=== PATIENT | male | born 1940 | race Caucasian/White ===

== ENCOUNTER 2019-11-20 06:01 | Emergency (ER) | payer MEDICARE ==
--- NOTE | 2019-11-20 06:22 | ERPHSYRPT ---
- History of Present Illness Time Seen by Provider: 11/20/19 06:15 Source: patient Exam Limitations: no limitations Physician History: 79 y/o white male exposed to bleach a couple of days ago. now coughing and mild soa. in addition, he said he has a rash left forearm. pt did use an old albuterol inhaler a couple of times. 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 pt denies cp. pt denies n/v/d. he denies abd pain. Timing/Duration: day(s) (2) Activities at Onset: none Severity of Dyspnea-Max: mild Severity of Dyspnea-Current: mild Possible Cause: no prior episodes Associated Symptoms: intermittent, cough, No chest pain/discomfort, No insomnia , No loss of appetite, No wheezing, No hemoptysis Allergies/Adverse Reactions: No Known Drug Allergies Allergy (Unverified 11/20/19 06:25) Home Medications: Apixaban [Eliquis] 5 mg PO DAILY 11/20/19 [History] lisinopriL [Lisinopril] 40 mg PO DAILY 11/20/19 [History] - Review of Systems Constitutional: No Symptoms Eyes: No Symptoms Ears, Nose, & Throat: No Symptoms Respiratory: Cough, Dyspnea Cardiac: No Symptoms, No Chest Pain, No Palpitations Abdominal/Gastrointestinal: No Symptoms Genitourinary Symptoms: No Symptoms Musculoskeletal: No Symptoms Skin: No Symptoms Neurological: No Symptoms Psychological: No Symptoms Endocrine: No Symptoms Hematologic/Lymphatic: No Symptoms Immunological/Allergic: No Symptoms All Other Systems: Reviewed and Negative - Past Medical History Pertinent Past Medical History: Yes Neurological History: No Pertinent History ENT History: No Pertinent History Endocrine Medical History: No Pertinent History Musculoskeletal History: No Pertinent History GI Medical History: No Pertinent History History: No Pertinent History Psycho-Social History: No Pertinent History Male Reproductive Disorders: No Pertinent History - Past Surgical History Neuro Surgical History: No Pertinent History Respiratory: No Pertinent History Gastrointestinal: No Pertinent History Genitourinary: No Pertinent History Musculoskeletal: No Pertinent History Male Surgical History: No Pertinent History - Nursing Vital Signs Nursing Vital Signs: Initial Vital Signs Temperature 98.8 F 11/20/19 06:09 Pulse Rate 79 11/20/19 06:09 Respiratory Rate 23 11/20/19 06:09 Blood Pressure 181/88 11/20/19 06:09 O2 Sat by Pulse Oximetry 93 L 11/20/19 06:09 Pain Scale Pain Intensity 0 - Physical Exam General Appearance: mild distress, alert, anxiety Eye Exam: PERRL/EOMI, eyes nml inspection Ears, Nose, Throat Exam: hearing grossly normal Neck Exam: normal inspection, non-tender, supple, full range of motion Respiratory Exam: normal breath sounds, respiratory distress, airway intact, rhonchi (mild), wheezing (right side ant and bilat post), No chest tenderness Cardiovascular/Chest Exam: normal heart sounds, regular rate/rhythm, murmur, normal peripheral pulses Abdominal/Gastrointestinal Exam: soft, normal bowel sounds Rectal Exam: not done Extremity Exam: non-tender, normal range of motion, normal inspection Neurologic Exam: alert, oriented x 3, cooperative, cigar brander II-XII nml as tested Skin Exam: normal color, warm, dry, rash (two flat pink well circumscribed patches left forearm) Lymphatic Exam: No adenopathy SpO2 Interpretation: normal O2 Delivery: Room Air - Course Nursing assessment & vital signs reviewed: Yes Ordered Tests: Active Orders 24 hr Category Date Time Status Produce Sorter STAT Care 11/20/19 06:23 Active IV Insertion STAT Care 11/20/19 06:22 Active Pulse Oximetry (ED) STAT Care 11/20/19 06:22 Active CHEST 1 VIEW (PORTABLE) Stat Exams 11/20/19 06:22 Taken CBC W DIFF Stat Lab 11/20/19 06:31 Completed CMP Stat Lab 11/20/19 06:31 Results Lactic Acid Stat Lab 11/20/19 06:22 Completed NT PRO BNP Stat Lab 11/20/19 06:31 Results PROTIME WITH INR Stat Lab 11/20/19 06:31 Completed Peak Expiratory Flow Rate ONCE RT 11/20/19 06:34 Active Respiratory Therapy Assessment DAILY RT 11/20/19 06:33 Active Medication Summary Discontinued Medications Generic Name Dose Route Start Last Admin Trade Name Freq PRN Reason Stop Dose Admin Albuterol Sulfate 2.5 mg 11/20/19 06:28 11/20/19 06:30 Proventil 2.5 Mg/3 Ml Neb IH 11/20/19 06:29 2.5 mg STAT ONE Administration Albuterol Sulfate Confirm 11/20/19 06:29 Proventil 2.5 Mg/3 Ml Neb Administered 11/20/19 06:30 Dose 2.5 mg IH .STK-MED ONE Ceftriaxone Sodium/Dextrose 1 g in 50 mls @ 100 mls/hr 11/20/19 07:01 07:15 Rocephin 1 Gm-D5w 50 Ml Bag IV 11/20/19 07:30 100 mls/hr STAT STA 100 mls/hr Administration Ceftriaxone Sodium/Dextrose Confirm 11/20/19 07:14 Rocephin 1 Gm-D5w 50 Ml Bag Administered 11/20/19 07:15 Dose 1 g in 50 mls @ ud IV .STK-MED ONE Methylprednisolone Sodium Succinate 125 mg 11/20/19 06:30 11/20/19 06:40 Solu-Medrol 125 Mg IV 11/20/19 06:31 125 mg STAT ONE Administration Methylprednisolone Sodium Succinate Confirm 11/20/19 06:40 Solu-Medrol 125 Mg Administered 11/20/19 06:41 Dose 125 mg .ROUTE .STK-MED ONE Lab/Rad Data: Laboratory Result Diagrams 11/20/19 06:31 11/20/19 06:31 Laboratory Results 11/20/19 11/20/19 11/20/19 Range/Units 06:31 06:31 06:31 WBC (4.0-10.5) K/mm3 RBC (4.1-5.6) M/mm3 Hgb (12.5-18.0) gm/dl Hct (42-50) % MCV (78-100) fl MCH (26-32) pg MCHC (32-36) g/dl RDW (11.5-14.0) % Plt Count (150-450) K/mm3 MPV (7.5-11.0) fl Gran % (36.0-66.0) % Eos # (Auto) (0-0.5) Absolute Lymphs (auto) (1.0-4.6) Absolute Monos (auto) (0.0-1.3) Lymphocytes % (24.0-44.0) % Monocytes % (0.0-12.0) % Eosinophils % (0.00-5.0) % Basophils % (0.0-0.4) % Absolute Granulocytes (1.4-6.9) Basophils # (0-0.4) PT 16.3 H (8.83-12.87) SECONDS INR 1.43 (0.8-3.0) Sodium 138 (137-145) mmol/L Potassium 4.4 (3.5-5.1) mmol/L Chloride 108 H (98-107) mmol/L Carbon Dioxide 21 L (22-30) mmol/L Anion Gap 13.7 (5-15) MEQ/L BUN 19 (9-20) mg/dL Creatinine 1.43 H (0.66-1.25) mg/dL Estimated GFR 50.6 ML/MIN Glucose 119 H (74-106) mg/dL Lactic Acid (0.4-2.0) Calcium 9.9 (8.4-10.2) mg/dL Total Bilirubin 0.80 (0.2-1.3) mg/dL AST 42 (17-59) U/L ALT 13 (0-50) U/L Alkaline Phosphatase 52 (38-126) U/L NT-Pro-B Natriuret Pep Pending Serum Total Protein 7.5 (6.3-8.2) g/dL Albumin 4.4 (3.5-5.0) g/dL Influenza Type A Ag NEGATIVE (NEGATIVE) Influenza Type B Ag NEGATIVE (NEGATIVE) RSV (PCR) NEGATIVE (Negative) 11/20/19 11/20/19 Range/Units 06:31 06:22 WBC 11.6 H (4.0-10.5) K/mm3 RBC 4.59 (4.1-5.6) M/mm3 Hgb 14.2 (12.5-18.0) gm/dl Hct 43.3 (42-50) % MCV 94.3 (78-100) fl MCH 30.9 (26-32) pg MCHC 32.8 (32-36) g/dl RDW 14.2 H (11.5-14.0) % Plt Count 202 (150-450) K/mm3 MPV 11.8 H (7.5-11.0) fl Gran % 75.3 H (36.0-66.0) % Eos # (Auto) 0.36 (0-0.5) Absolute Lymphs (auto) 1.16 (1.0-4.6) Absolute Monos (auto) 1.31 H (0.0-1.3) Lymphocytes % 10.0 L (24.0-44.0) % Monocytes % 11.3 (0.0-12.0) % Eosinophils % 3.1 (0.00-5.0) % Basophils % 0.3 (0.0-0.4) % Absolute Granulocytes 8.76 H (1.4-6.9) Basophils # 0.03 (0-0.4) PT (8.83-12.87) SECONDS INR (0.8-3.0) Sodium (137-145) mmol/L Potassium (3.5-5.1) mmol/L Chloride (98-107) mmol/L Carbon Dioxide (22-30) mmol/L Anion Gap (5-15) MEQ/L BUN (9-20) mg/dL Creatinine (0.66-1.25) mg/dL Estimated GFR ML/MIN Glucose (74-106) mg/dL Lactic Acid 1.4 (0.4-2.0) Calcium (8.4-10.2) mg/dL Total Bilirubin (0.2-1.3) mg/dL AST (17-59) U/L ALT (0-50) U/L Alkaline Phosphatase (38-126) U/L NT-Pro-B Natriuret Pep Serum Total Protein (6.3-8.2) g/dL Albumin (3.5-5.0) g/dL Influenza Type A Ag (NEGATIVE) Influenza Type B Ag (NEGATIVE) RSV (PCR) (Negative) - Progress Progress: improved Air Movement: good Progress Note: 11/20/19 07:36 cxr-right lower lobe infiltrate Antibiotics given: Yes Counseled pt/family regarding: lab results, diagnosis, need for follow-up, rad results - Departure Departure Disposition: Home Clinical Impression: Right pulmonary infiltrate on CXR Condition: Stable Critical Care Time: No Referrals: TIM JONES [Primary Care Provider] - Additional Instructions: follow up with primary doctor for further management. continue using your albuterol inhaler. Prescriptions: Albuterol 8 gm Mdi Hfa [Ventolin Hfa MDI] 8 gm IH Q4H #1 [email or web address] Azithromycin 250 mg [Zithromax 250 MG TABLET] 250 mg PO ZPACK #6 tablet Prednisone 10 mg [Deltasone 10 mg] 10 mg PO TID #12 tablet
[2019-11-20] MEDS ORDERED: PROVENTIL 2.5 MG/3 ML NEB IH ONE ×2 (06:28→06:29)
[2019-11-20] MEDS ORDERED: solu-MEDROL 125 MG IV ONE (06:30)
[2019-11-20 06:33] LABS: Absolute Neutrophil Ct (ANC) 8.76 (1.4-6.9); BASOPHIL % 0.3 % (0.0-0.4); Basophil (Absolute #) 0.03 (0-0.4); Eosinophil % 3.1 % (0.00-5.0); Eosinophil (Absolute #) 0.36 (0-0.5); Hematocrit 43.3 % (42-50); Hemoglobin 14.2 gm/dl (12.5-18.0); Lymphocyte (Absolute #) 1.16 (1.0-4.6); Mean Cell Volume 94.3 fl (78-100); Mean Corpuscular Hemoglobin 30.9 pg (26-32); Mean Corpuscular Hgb Concent. 32.8 g/dl (32-36); Mean Platelet Volume 11.8 fl (7.5-11.0); Monocyte (Absolute #) 1.31 (0.0-1.3); Monocytes % 11.3 % (0.0-12.0); Neutrophil % 75.3 % (36.0-66.0); Platelet Count 202 K/mm3 (150-450); Red Blood Count 4.59 M/mm3 (4.1-5.6); Red Cell Distribution Width 14.2 % (11.5-14.0); White Blood Count 11.6 K/mm3 (4.0-10.5)
[2019-11-20] MEDS ORDERED: solu-MEDROL 125 MG ONE (06:40)
[2019-11-20 06:57] LABS: INR 1.43 (0.8-3.0); PROTIME 16.3 SECONDS (8.83-12.87)
[2019-11-20] MEDS ORDERED: ROCEPHIN 1 Gm-D5w 50 ml Bag** 1 G/50 ML IVPB IV STA (07:01)
[2019-11-20 07:05] LABS: ALBUMIN 4.4 g/dL (3.5-5.0); ANION GAP 13.7 MEQ/L (5-15); BILIRUBIN,TOTAL 0.8 mg/dL (0.2-1.3); Calcium 9.9 mg/dL (8.4-10.2); Creatinine 1 1.43 mg/dL (0.66-1.25); INFLUENZA A NEGATIVE (NEGATIVE); INFLUENZA B NEGATIVE (NEGATIVE); Potassium 4.4 mmol/L (3.5-5.1); RESPIRATORY SYNCTIAL VIRUS NEGATIVE (Negative); Total Protein 7.5 g/dL (6.3-8.2)
[2019-11-20] MEDS ORDERED: ROCEPHIN 1 Gm-D5w 50 ml Bag** 1 G/50 ML IVPB IV ONE (07:14)
[2019-11-20 07:29] VITALS: BP 164/77
[2019-11-20 08:23] VITALS: PULSE 62; O2SAT 91
--- NOTE | 2019-11-20 09:27 | XRAY ---
Indication: Short of breath. Comparison: February 02 Portable chest demonstrates new small focus of right middle lobe infiltrate versus atelectasis, borderline cardiomegaly, and left-sided dual-lead pacemaker. Stable incidental azygos lobe, right lung calcified granuloma, and bony degenerative changes.
== END 2019-11-20 08:19 | disposition home or self-care (01) ==
LOC: ED 06:01
DX: R91.8 Other nonspecific abnormal finding of lung field (principal); Z79.899 Other long term (current) drug therapy
CPT/HCPCS: 36000; 36415; 71045; 80053; 83605; 83880; 85025; 85610; 87631; 93041; 94150; 94640; 94760; 96365; 96374; 99284; J0696; J2930; J7609; A9270-GY